=== PATIENT | male | born 1950 | race Caucasian/White ===

== ENCOUNTER → 2017-03-13 | Outpatient (CLI) | payer MEDICARE ==
--- NOTE | 2017-03-13 15:25 | MR ---
EXAMINATION TYPE: MR knee RT wo con DATE OF EXAM: 03/13/2017 COMPARISON: NONE HISTORY: Right knee pain TECHNIQUE: Multiplanar, multisequence imaging of the right knee is performed without IV contrast. FINDINGS: MEDIAL MENISCUS: There is oblique signal within the anterior portion of the posterior horn medial men iscus. This may have communication with the inferior articular surface can be compatible with small t ear. The anterior horn of the medial meniscus appears intact. LATERAL MENISCUS: Anterior and posterior horns are intact without tear. CRUCIATE LIGAMENTS: The anterior and posterior cruciate ligaments are intact and unremarkable. COLLATERAL LIGAMENTS: The medial collateral ligament and lateral collateral ligament complex are inta ct and unremarkable. EXTENSOR MECHANISM: Visualized quadriceps and patellar tendons are intact. EFFUSION: Moderate joint effusion is present. POPLITEAL CYST: No popliteal/gaona cyst. TRICOMPARTMENT SPACES: There is mild narrowing of the tricompartment spaces. CARTILAGE: There is thinning of the articular cartilage. This is more noticeable along the posterior patella and within the medial compartment right knee. BONE MARROW SIGNAL: Mild increased signal is within the medial portion medial compartment of the dist al fibula and tibial plateau. Some low signal area surrounding hypointensity along the surface could suggest an underlying subchondral fracture. Series 501 image 17, series 401 image 17. Fracture of the articular cartilage is not excluded on the T2-weighted images. OTHER: No additional significant abnormality is appreciated. IMPRESSION: 1. Moderate joint effusion. 2. Complex are oblique tear of the anterior portion posterior horn medial meniscus. 3. Suspected chondral and subchondral fracture medial tibial plateau. 4. Osteoarthritic degenerative change medial compartment left knee and patellofemoral joint space. 5. Medial femoral condylar and medial tibial plateau bone contusions.
== END | disposition home or self-care (01) ==
LOC: RADMRIMAIN 11:02
PROVIDERS: ATTEND Orthopaedic Surgery
DX: S83.232A Complex tear of medial meniscus, current injury, left knee, initial encounter (principal); M17.12 Unilateral primary osteoarthritis, left knee; S80.12XA Contusion of left lower leg, initial encounter

== ENCOUNTER → 2017-04-15 | Outpatient (CLI) | payer MEDICARE ==
[2017-04-15 12:31] LABS: EKG EKG PERFORMED
[2017-04-15 13:31] LABS: Basophils % (A) 1 %; CH 32.7; CHCM 33.5; Eosinophils # (A) 0.1 k/uL (0-0.7); Eosinophils % (A) 2 %; HCT 44.5 % (39.0-53.0); HDW 2.58; HGB 14.5 gm/dL (13.0-17.5); Luc # (Auto) 0.14; Luc % (Auto) 4; Lymphocytes # (A) 0.9 k/uL (1.0-4.8); Lymphocytes % (A) 26 %; MCH 31.9 pg (25.0-35.0); MCHC 32.5 g/dL (31.0-37.0); MCV 98.1 fL (80.0-100.0); Mean Platelet Volume 7.2; Monocytes # (A) 0.4 k/uL (0-1.0); Monocytes % (A) 12 %; Neutrophils # (A) 1.8 k/uL (1.3-7.7); Neutrophils % (A) 54 %; RBC 4.54 m/uL (4.30-5.90); RDW 13.1 % (11.5-15.5); WBC 3.3 k/uL (3.8-10.6); WBC (Perox) 3.52
[2017-04-15 13:41] LABS: Anion Gap 12 mmol/L; Carbon Dioxide 23 mmol/L (22-30); Chloride 100 mmol/L (98-107); Potassium 4.7 mmol/L (3.5-5.1); Sodium 135 mmol/L (137-145)
== END | disposition home or self-care (01) ==
LOC: LABPAT 12:13
PROVIDERS: ATTEND Orthopaedic Surgery
DX: Z01.810 Encounter for preprocedural cardiovascular examination (principal); M23.91 Unspecified internal derangement of right knee; Z01.812 Encounter for preprocedural laboratory examination
CPT/HCPCS: 36415; 80051; 85025; 93005